=== PATIENT | female | born 1965 | race Caucasian/White ===

== ENCOUNTER → 2016-09-27 | Outpatient (REF) | payer BC ==
[~2016-09-27] MED LIST: COLA100C PO; DOCU10CA PO; KETO10TAB PO; KLON0.5T PO; MOTR200T44 PO; TYLE325T5 PO; ZOFR40IN IV
== END ==
LOC: M SFHCPLAZ 15:43
PROVIDERS: ATTEND Dermatology
DX: L98.9 Disorder of the skin and subcutaneous tissue, unspecified (principal)

== ENCOUNTER → 2017-01-09 | Outpatient (CLI) | payer BC ==
[~2017-01-09] MED LIST changes: -COLA100C PO; +COLA100C5 PO
--- NOTE | 2017-01-09 13:33 | REP ---
Clinical: Right upper quadrant abdominal pain. Technique: Single supine view of the abdomen and pelvis. Comparison: 01/22/2004. Findings: Bowel gas pattern is nonspecific although moderate fecal stasis and constipation cannot be excluded. No evidence for obstruction or perforation. No organomegaly. Skeletal structures normal for age. Impression: Cannot exclude fecal stasis. Nonspecific bowel gas pattern. The Signed by Jeremy Fink MD 01/09/2017 01:25 P
[2017-01-09 14:08] LABS: ALBUMIN/GLOBULIN RATIO 1.18 (1.00-1.93); ALKALINE PHOSPHATASE 62 U/L (45-117); ALT/SGPT 23 U/L (12-78); AMYLASE 51 U/L (25-115); ANION GAP 8 MEQ/L (8-16); AST/SGOT 20 U/L (15-37); BILIRUBIN,TOTAL 0.5 MG/DL (0.2-1.0); BLOOD UREA NITROGEN 11 MG/DL (7-18); CARBON DIOXIDE LEVEL 30 MEQ/L (21-32); CHLORIDE LEVEL 101 MEQ/L (98-107); CREATININE FOR GFR 0.66 MG/DL (0.55-1.02); GLOMERULAR FILTRATION RATE > 60.0 (>51); GLUCOSE, FASTING 78 MG/DL (70-105); POTASSIUM SERUM 3.8 MEQ/L (3.5-5.1); SODIUM LEVEL 139 MEQ/L (136-145); TOTAL PROTEIN 7.4 GM/DL (6.4-8.2)
== END ==
LOC: M LAB 12:32
PROVIDERS: ATTEND Nurse Practitioner Adult Health
DX: R10.11 Right upper quadrant pain (principal)

== ENCOUNTER → 2017-01-14 | Outpatient (CLI) | payer BC ==
--- NOTE | 2017-01-14 15:21 | REP ---
Right upper quadrant sonography: History: Right upper quadrant pain. Comparison study: Comparison sonography December 09, 2011. Findings: Scanning through the right upper quadrant of the abdomen demonstrates a normal sized, thin-walled gallbladder without evidence of stone or polyp. Common bile duct is normal measuring 0.4 cm in greatest diameter. No focal liver lesion is seen. Liver size is normal. No pancreatic abnormality is observed. Pancreatic tail is obscured by abdominal gas. No right renal abnormality is seen. There is no evidence of ascites. The right kidney measures 9.5 x 5.6 x 5.2 cm. Impression: Negative right upper quadrant sonography. Signed by Oscar Paiz MD 01/14/2017 03:12 P
== END ==
LOC: M RAD 07:31
PROVIDERS: ATTEND Nurse Practitioner Adult Health
DX: R10.11 Right upper quadrant pain (principal)

== ENCOUNTER → 2017-02-01 | Outpatient (CLI) | payer BC ==
[~2017-02-01] MED LIST changes: +GASTROGRAFIN SOLUTION 30ML (Q9963) As Ordered ONE; +ISOVUE-370 76% 100ML VIAL (Q9967) As Ordered ONE
--- NOTE | 2017-02-01 18:26 | REP ---
REASON: Abdominal discomfort. COMPARISON: 06/01/2013. CONTRAST UTILIZED: 100 mL [id number]. The lung bases are clear and unchanged. The precontrast enhanced portion of the examination shows hepatic and splenic densities to be within normal limits. There are no nephroliths or choleliths. The contrast enhanced portion of the exam shows no change in appearance of the hepatic or splenic densities. They are within normal limits. The gallbladder, spleen, pancreas, adrenal glands and kidneys are within normal limits and unchanged. The abdominal aorta and paraaortic regions are with normal limits and unchanged. No free fluid or free air is seen in the abdomen or pelvis. The intraabdominal and intrapelvic bowel loops and their mesenteries are again seen to be within normal limits. There is no intraabdominal mass. In the right hemipelvis there is an oval shaped 4.4 x 3.5 cm sized low density mass which is likely of ovarian origin, having slightly higher than Water Hounsfield's unit readings. The appearance of this is essentially unchanged from the prior exam. There is no intraabdominal or intrapelvic adenopathy. Bone window technique throughout the exam shows the osseous structures to be stable and intact. IMPRESSION: There is what is most likely a recurring right ovarian cyst. Pelvic ultrasonography using transvesical and transvaginal imaging is recommended for further evaluation. Signed by Josh Shea DO 02/01/2017 07:52 P
== END ==
LOC: M RAD 15:38
PROVIDERS: ATTEND Nurse Practitioner Adult Health
DX: R93.5 Abnormal findings on diagnostic imaging of other abdominal regions, including retroperitoneum (principal)
CPT/HCPCS: 74178; Q9963; Q9967

== ENCOUNTER → 2018-02-21 | Outpatient (CLI) | payer BC ==
[2018-02-21 09:55] LABS: ALBUMIN 3.5 GM/DL (3.2-5.2); ALBUMIN/GLOBULIN RATIO 1.03 (1.00-1.93); ALKALINE PHOSPHATASE 60 U/L (45-117); ALT/SGPT 26 U/L (12-78); ANION GAP 6 MEQ/L (8-16); AST/SGOT 18 U/L (7-37); BILIRUBIN,TOTAL 0.6 MG/DL (0.2-1.0); BLOOD UREA NITROGEN 8 MG/DL (7-18); C REACTIVE PROTEIN QUANTITATIV 0.33 MG/DL (0.00-0.30); CALCIUM LEVEL 8.8 MG/DL (8.5-10.1); CARBON DIOXIDE LEVEL 28 MEQ/L (21-32); CHLORIDE LEVEL 105 MEQ/L (98-107); CHOLESTEROL LEVEL 184 MG/DL (<200); CREATININE FOR GFR 0.63 MG/DL (0.55-1.30); GLOMERULAR FILTRATION RATE > 60.0 (>51); GLUCOSE, FASTING 84 MG/DL (70-100); HDL CHOLESTEROL 65 MG/DL (>40); NON-HDL-C 119 MG/DL; POTASSIUM SERUM 4.5 MEQ/L (3.5-5.1); SODIUM LEVEL 139 MEQ/L (136-145); TOTAL PROTEIN 6.9 GM/DL (6.4-8.2); TRIGLYCERIDES LEVEL 105 MG/DL (<150)
[2018-02-21 10:00] LABS: ERYTHROCYTE SEDIMENTATION RATE 11 mm/hr (0-30)
== END ==
LOC: M LAB 08:06
DX: Z01.818 Encounter for other preprocedural examination (principal)
CPT/HCPCS: 93005

== ENCOUNTER → 2018-02-21 | Outpatient (CLI) | payer BC ==
[2018-02-21 09:36] LABS: HEMATOCRIT 40.6 % (36.0-47.0); HEMOGLOBIN 14.1 g/dl (12.0-15.5); MEAN CORPUSCULAR HEMOGLOBIN 30.9 pg (27.0-33.0); MEAN CORPUSCULAR HGB CONC 34.7 g/dl (32.0-36.5); PLATELET COUNT, AUTOMATED 238 10^3/uL (150-450); RED BLOOD COUNT 4.56 10^6/uL (4.00-5.40); RED CELL DISTRIBUTION WIDTH 12.3 % (11.5-14.5); WHITE BLOOD COUNT 5.9 10^3/uL (4.0-10.0)
[2018-02-21 09:48] LABS: INR 0.96; PROTHROMBIN TIME 12.8 SECONDS (12.1-14.4)
[2018-02-21 09:49] LABS: PARTIAL THROMBOPLASTIN TIME 30.2 SECONDS (25.4-37.6)
[2018-02-21 10:05] LABS: ANION GAP 8 MEQ/L (8-16); BLOOD UREA NITROGEN 8 MG/DL (7-18); CALCIUM LEVEL 9.1 MG/DL (8.5-10.1); CARBON DIOXIDE LEVEL 30 MEQ/L (21-32); CHLORIDE LEVEL 103 MEQ/L (98-107); CREATININE FOR GFR 0.66 MG/DL (0.55-1.30); GLOMERULAR FILTRATION RATE > 60.0 (>51); GLUCOSE, FASTING 87 MG/DL (70-100); POTASSIUM SERUM 4.7 MEQ/L (3.5-5.1); SODIUM LEVEL 141 MEQ/L (136-145)
== END ==
LOC: M LAB 08:12
DX: Z01.812 Encounter for preprocedural laboratory examination (principal); I83.811 Varicose veins of right lower extremity with pain
CPT/HCPCS: 80048

== ENCOUNTER → 2019-04-22 | Outpatient (CLI) | payer BC ==
[~2019-04-22] MED LIST changes: -GASTROGRAFIN SOLUTION 30ML (Q9963) As Ordered ONE; -ISOVUE-370 76% 100ML VIAL (Q9967) As Ordered ONE
--- NOTE | 2019-04-22 07:57 | REP ---
Clinical: Epigastric pain and heartburn. Technique: Real time allen scale ultrasound examination using curved array transducer. Findings: Liver and pancreas are normal in contour, size, echogenicity without focal hepatic or pancreatic lesion identified. The gallbladder is normal and without gallstones, wall thickening, or pericholecystic fluid. No biliary ductal dilatation is appreciated and the common bile duct measures 2.7 mm diameter. Right kidney is normal in reniform shape and appearance without hydronephrosis measuring 10.6 x 5.8 x 5.7 cm. No ascites in the visualized right upper quadrant. Impression: Normal right upper quadrant abdominal ultrasound. Electronically Signed by Jeremy Fink MD 04/22/2019 07:49 A
== END ==
LOC: M RAD 07:20
PROVIDERS: ATTEND Internal Medicine
DX: R12 Heartburn (principal); R10.13 Epigastric pain

== ENCOUNTER 2020-07-06 09:04 | Emergency (ER) | payer OTHER, BC ==
[~2020-07-06] VITALS: Ht 167.6 cm; Wt 76.8 kg
[2020-07-06 09:04] VITALS: BP 130/72
[2020-07-06] MEDS ORDERED: HORMONE PELLET (09:18)
[2020-07-06] MEDS ORDERED: IBUPROFEN 800 MG TAB PO ONE (09:45)
--- NOTE | 2020-07-06 10:13 | REP ---
INDICATION: R hand pain COMPARISON: None. TECHNIQUE: AP, lateral, bilateral oblique views right hand. FINDINGS: The osseous structures and joint spaces are intact and normal. There is no evidence for acute fracture or dislocation. Surrounding soft tissues are unremarkable. No subcutaneous emphysema or radiodense foreign body. IMPRESSION: . No acute fracture or dislocation. <Electronically signed by Jeremy Fink > 07/06/20 [id number]
--- NOTE | 2020-07-06 10:13 | REP ---
INDICATION: R hand pain COMPARISON: None. TECHNIQUE: AP, lateral, bilateral oblique views right wrist. FINDINGS: The carpal bones, surrounding osseous structures, soft tissues, and joint spaces are normal. There is no evidence for acute fracture or dislocation. No subcutaneous emphysema or radiodense foreign body. IMPRESSION: Normal wrist series. No acute fracture or dislocation. <Electronically signed by Jeremy Fink > 07/06/20 [id number]
== END 2020-07-06 10:41 | disposition home or self-care (01) ==
LOC: M ED 09:04
DX: S63.91XA Sprain of unspecified part of right wrist and hand, initial encounter (principal); S60.211A Contusion of right wrist, initial encounter; S60.221A Contusion of right hand, initial encounter; W22.8XXA Striking against or struck by other objects, initial encounter; Y92.89 Other specified places as the place of occurrence of the external cause; Y99.0 Civilian activity done for income or pay; Z88.5 Allergy status to narcotic agent

== ENCOUNTER → 2020-09-07 | Outpatient (CLI) | payer BC ==
[~2020-09-07] MED LIST changes: +HORMONE PELLET
--- NOTE | 2020-09-07 08:04 | REP ---
INDICATION: RIGHT FLANK PAIN- LABS FIRST. COMPARISON: None. TECHNIQUE: AP, lateral, swimmer's views of the thoracic spine FINDINGS: Alignment and kyphosis maintained. Mild/moderate multilevel degenerative changes include endplate sclerosis, osteophytosis and minimal disc space narrowing. No acute fracture/compression injury or subluxation. IMPRESSION: Mild/moderate multilevel degenerative spondylosis. <Electronically signed by Jeremy Fink > 09/07/20 0800
[2020-09-07 08:06] LABS: HEMATOCRIT 44.1 % (36.0-47.0); HEMOGLOBIN 14.2 g/dl (12.0-15.5); MEAN CORPUSCULAR HEMOGLOBIN 29.5 pg (27.0-33.0); MEAN CORPUSCULAR HGB CONC 32.2 g/dl (32.0-36.5); MEAN CORPUSCULAR VOLUME 91.5 fl (80.0-96.0); PLATELET COUNT, AUTOMATED 230 10^3/uL (150-450); RED BLOOD COUNT 4.82 10^6/uL (4.00-5.40); WHITE BLOOD COUNT 7.7 10^3/uL (4.0-10.0)
--- NOTE | 2020-09-07 08:06 | REP ---
INDICATION: RIGHT FLANK PAIN- LABS FIRST COMPARISON: None. TECHNIQUE: AP, lateral, bilateral oblique, and coned-down views of the lumbar spine. FINDINGS: Very minimal levoconvex chronic scoliosis suggested. Lordosis maintained. Moderate multilevel degenerative changes include endplate sclerosis, marginal spurring/osteophyte formation, disc space narrowing and facet arthropathy. Findings most pronounced at L 3 4 and L4-5. There is no evidence for acute fracture/compression injury or subluxation. IMPRESSION: Moderate multilevel degenerative changes primarily involving L3-4 and L4-5. <Electronically signed by Jeremy Fink > 09/07/20 [id number]
[2020-09-07 08:52] LABS: ALBUMIN 3.9 GM/DL (3.2-5.2); ALT/SGPT 40 U/L (12-78); BILIRUBIN,TOTAL 0.5 MG/DL (0.2-1.0); BLOOD UREA NITROGEN 15 MG/DL (7-18); CARBON DIOXIDE LEVEL 31 MEQ/L (21-32); CHLORIDE LEVEL 104 MEQ/L (98-107); CHOLESTEROL LEVEL 189 MG/DL (<200); CHOLESTEROL RISK RATIO 3.315 (<5); CREATININE FOR GFR 0.73 MG/DL (0.55-1.30); FERRITIN 38 NG/ML (8-252); GLOMERULAR FILTRATION RATE > 60.0 (>51); GLUCOSE, FASTING 97 MG/DL (70-100); HDL CHOLESTEROL 57 MG/DL (>40); IRON (FE) 63 UG/DL (50-170); LDL CHOLESTEROL 120 MG/DL (<100); NON-HDL-C 132 MG/DL; PERCENT SATURATION 21.4 % (13.2-45.0); POTASSIUM SERUM 4.2 MEQ/L (3.5-5.1); SODIUM LEVEL 140 MEQ/L (136-145); TOTAL IRON BINDING CAPACITY 295 UG/DL (250-450); TOTAL PROTEIN 6.8 GM/DL (6.4-8.2); TRIGLYCERIDES LEVEL 60 MG/DL (<150)
== END ==
LOC: M LAB 07:15
PROVIDERS: ATTEND Nurse Practitioner Adult Health
DX: E55.9 Vitamin D deficiency, unspecified (principal); R53.83 Other fatigue; Z13.29 Encounter for screening for other suspected endocrine disorder; R10.9 Unspecified abdominal pain

== ENCOUNTER → 2020-10-26 | Outpatient (CLI) | payer BC ==
--- NOTE | 2020-10-26 16:39 | DEXAMM ---
INDICATION: M81.0 MENOPAUSAL OSTEOPOROSIS. COMPARISON: None. TECHNIQUE: Bone density was measured using dual-energy x-ray absorptionmetry (DEXA). FINDINGS: AP SPINE L1-L4 BMD 1.389 g/cm2 Young Adult T-Score 1.6 Age Matched Z-Score 2.3. LT FEMUR, TOTAL BMD 1.097 g/cm2 Young Adult T-Score 0.7 Age Matched Z-Score 1.3. LT NECK BMD 1.059 g/cm2 Young Adult T-Score 0.2 Age Matched Z-Score 1.1. RT FEMUR, TOTAL BMD 1.087 g/cm2 Young Adult T-Score 0.6 Age Matched Z-Score 1.2. RT NECK BMD 1.082 g/cm2 Young Adult T-Score 0.3 Age Matched Z-Score 1.3. IMPRESSION: There is normal bone density of the spine. There is normal bone density of the left hip. There is normal bone density of the right hip. FOLLOW-UP: Recommendation for the next bone density exam: 5 years. <Electronically signed by Eber Paiz > 10/26/20 [id number]
== END ==
LOC: M WHC 15:27
PROVIDERS: ATTEND Nurse Practitioner Adult Health
DX: M81.8 Other osteoporosis without current pathological fracture (principal)

== ENCOUNTER → 2020-11-25 | Outpatient (CLI) | payer BC ==
--- NOTE | 2020-11-25 08:23 | REP ---
INDICATION: N83.209 OVARIAN CYST COMPARISON: None. TECHNIQUE: Transabdominal pelvic ultrasound followed by transvaginal examination for better evaluation of the endometrium and adnexa with color Doppler evaluation of the ovaries. FINDINGS: Bladder is under distended and measures 3.3 x 1.9 x 3.2 cm. Patient is noted to be status post hysterectomy. No pelvic fluid or adnexal mass lesions. The bilateral ovaries are not visualized on either transabdominal or transvaginal technique due to significant interposed bowel gas within the pelvis. IMPRESSION: Limited examination. As above. Ovaries and adnexa incompletely evaluated. <Electronically signed by Jeremy Fink > 11/25/20 [id number]
== END ==
LOC: M WHC 06:35
PROVIDERS: ATTEND Specialist
DX: N83.209 Unspecified ovarian cyst, unspecified side (principal); Z90.79 Acquired absence of other genital organ(s)

== ENCOUNTER 2021-03-10 17:54 | Emergency (ER) | payer BC ==
[~2021-03-10] VITALS: Ht 167.6 cm; Wt 76.6 kg
[~2021-03-10 17:54] MED LIST changes: +INTR6.5S VA
[2021-03-10] MEDS ORDERED: ONDANSETRON 4MG/2ML VIAL IV ONE (18:20)
[2021-03-10] MEDS ORDERED: NS 1,000 ML IV ONE (18:20)
[2021-03-10] MEDS ORDERED: KETOROLAC 30 MG/ML 1ML VIAL IV ONE (18:20)
[2021-03-10 18:46] LABS: BASO # 0.1 10^3/uL (0.0-0.2); BASO % 0.7 % (0.0-1.0); EOS % 0.3 % (0.0-3.0); HEMATOCRIT 41.9 % (36.0-47.0); HEMOGLOBIN 14.2 g/dl (12.0-15.5); LYMPH # 1.6 10^3/uL (1.5-5.0); LYMPH % 11.9 % (24.0-44.0); MEAN CORPUSCULAR HEMOGLOBIN 30.1 pg (27.0-33.0); MEAN CORPUSCULAR HGB CONC 33.9 g/dl (32.0-36.5); MEAN CORPUSCULAR VOLUME 88.8 fl (80.0-96.0); MONO # 0.6 10^3/uL (0.0-0.8); MONO % 4.4 % (2.0-8.0); NEUTROPHILS # 10.8 10^3/uL (1.5-8.5); NEUTROPHILS % 82.2 % (36.0-66.0); PLATELET COUNT, AUTOMATED 289 10^3/uL (150-450); RED BLOOD COUNT 4.72 10^6/uL (4.00-5.40); WHITE BLOOD COUNT 13.1 10^3/uL (4.0-10.0)
[2021-03-10 19:25] LABS: ALBUMIN 3.8 GM/DL (3.2-5.2); ALT/SGPT 27 U/L (12-78); BILIRUBIN,DIRECT 0.2 MG/DL (0.0-0.2); BILIRUBIN,TOTAL 0.7 MG/DL (0.2-1.0); BLOOD UREA NITROGEN 10 MG/DL (7-18); CALCIUM LEVEL 8.6 MG/DL (8.5-10.1); CARBON DIOXIDE LEVEL 27 MEQ/L (21-32); CHLORIDE LEVEL 103 MEQ/L (98-107); CREATININE FOR GFR 0.62 MG/DL (0.55-1.30); GLOMERULAR FILTRATION RATE > 60.0 (>51); GLUCOSE, FASTING 117 MG/DL (70-100); POTASSIUM SERUM 3.9 MEQ/L (3.5-5.1); SODIUM LEVEL 137 MEQ/L (136-145); TOTAL PROTEIN 6.9 GM/DL (6.4-8.2)
--- NOTE | 2021-03-10 19:45 | REPVR ---
PROCEDURE INFORMATION: Exam: CT Abdomen And Pelvis Without Contrast Exam date and time: 03/10/2021 7:20 PM Age: 55 years old Clinical indication: Other: Right flank pain TECHNIQUE: Imaging protocol: Computed tomography of the abdomen and pelvis without contrast. Radiation optimization: All CT scans at this facility use at least one of these dose optimization techniques: automated exposure control; mA and/or kV adjustment per patient size (includes targeted exams where dose is matched to clinical indication); or iterative reconstruction. COMPARISON: CT ABD PELVIS W/O FOL BY WIT 02/01/2017 5:19 PM FINDINGS: Liver: Normal. No mass. Gallbladder and bile ducts: Normal. No calcified stones. No ductal dilation. Pancreas: Normal. No ductal dilation. Spleen: Normal. No splenomegaly. Adrenal glands: Normal. No mass. Kidneys and ureters: Punctate nonobstructive calculus lower pole right kidney. Kidneys otherwise unremarkable. Stomach and bowel: Unremarkable. No obstruction. No mucosal thickening. Appendix: The appendix is within normal limits. There is no appendiceal enlargement, periappendiceal inflammatory changes or abscess. Intraperitoneal space: Unremarkable. No free air. No significant fluid collection. Vasculature: The aortoiliac vessels demonstrate mild atherosclerotic calcification. Lymph nodes: Unremarkable. No enlarged lymph nodes. Urinary bladder: Unremarkable as visualized. Reproductive: There has been a hysterectomy. Bones/joints: Mild retrolisthesis of L4 on L5. Moderate central spinal stenosis L3-L4 and L4-L5. Soft tissues: Small umbilical hernia. IMPRESSION: 1. There has been a hysterectomy. 2. The appendix is within normal limits. There is no appendiceal enlargement, periappendiceal inflammatory changes or abscess. 3. Small nonobstructive calculus lower pole right kidney. No obstructive urinary tract calculi demonstrated. Electronically signed by: Abdullahi Ace On 03/10/2021 19:44:59 PM
[2021-03-10] MEDS ORDERED: diazePAM 10MG/2ML SYRINGE (J3360 PER 5MG) IV ONE (20:15)
[2021-03-10] MEDS ORDERED: KETO10TAB PO (20:49)
[2021-03-10] MEDS ORDERED: CYCL-707 PO (20:49)
[2021-03-10 21:24] VITALS: BP 128/74
== END 2021-03-10 21:24 | disposition home or self-care (01) ==
LOC: M ED 17:54
DX: N20.0 Calculus of kidney (principal); M62.830 Muscle spasm of back; M51.36 Other intervertebral disc degeneration, lumbar region; M48.061 Spinal stenosis, lumbar region without neurogenic claudication; K42.9 Umbilical hernia without obstruction or gangrene; I70.8 Atherosclerosis of other arteries; Z90.710 Acquired absence of both cervix and uterus
CPT/HCPCS: 74176; 80048; 80076; 81001; 85025; 96361; 96374; 96375; 99284; J1885; J2405; J3360

== ENCOUNTER → 2021-04-21 | Outpatient (REF) ==
[~2021-04-21] MED LIST changes: +CYCL-707 PO
== END ==
LOC: M EMP 12:45
PROVIDERS: ATTEND Family Medicine
DX: Z20.822 Contact with and (suspected) exposure to COVID-19 (principal)

== ENCOUNTER → 2021-07-12 | Outpatient (REF) | LOC: M EMP 13:14 | PROVIDERS: ATTEND Family Medicine | DX: Z11.52 Encounter for screening for COVID-19 (principal) ==

== ENCOUNTER → 2022-02-16 | Outpatient (CLI) | payer BC ==
[2022-02-16 10:50] LABS: ALBUMIN 3.6 GM/DL (3.2-5.2); ALT/SGPT 23 U/L (12-78); BILIRUBIN,TOTAL 0.7 MG/DL (0.2-1.0); BLOOD UREA NITROGEN 11 MG/DL (7-18); CALCIUM LEVEL 9.2 MG/DL (8.5-10.1); CARBON DIOXIDE LEVEL 28 MEQ/L (21-32); CHLORIDE LEVEL 102 MEQ/L (98-107); CHOLESTEROL LEVEL 210 MG/DL (<200); CHOLESTEROL RISK RATIO 3.088 (<5); CREATININE FOR GFR 0.68 MG/DL (0.55-1.30); GLOMERULAR FILTRATION RATE > 60.0 (>51); GLUCOSE, FASTING 79 MG/DL (70-100); HDL CHOLESTEROL 68 MG/DL (>40); LDL CHOLESTEROL 126 MG/DL (<100); NON-HDL-C 142 MG/DL; POTASSIUM SERUM 4.3 MEQ/L (3.5-5.1); SODIUM LEVEL 137 MEQ/L (136-145); TOTAL PROTEIN 7.1 GM/DL (6.4-8.2); TRIGLYCERIDES LEVEL 81 MG/DL (<150)
[2022-02-16 11:16] LABS: TOTAL 25(OH) VITAMIN D 48.8 NG/ML (30.0-100.0)
== END ==
LOC: M LAB 07:53
PROVIDERS: ATTEND Nurse Practitioner Adult Health
DX: Z00.00 Encounter for general adult medical examination without abnormal findings (principal); E55.9 Vitamin D deficiency, unspecified; Z13.29 Encounter for screening for other suspected endocrine disorder; Z13.220 Encounter for screening for lipoid disorders

== ENCOUNTER → 2022-03-17 | Outpatient (CLI) | payer BC ==
[2022-03-21 00:07] LABS: CYCLIC CITRULLINATED PEPTIDE 3 units (0-19); IgG P18 AB Absent (.); IgG P23 AB Absent (.); IgG P28 AB Present (.); IgG P30 AB Absent (.); IgG P39 AB Absent (.); IgG P41 AB Present (.); IgG P45 AB Absent (.); IgG P66 AB Absent (.); IgG P93 AB Absent (.); IgM P23 AB Absent (.); IgM P39 AB Absent (.); IgM P41 AB Absent (.); LYME IgG WB INTERPRETATION Negative (.); LYME IgM WB INTERPRETATION Negative (.)
== END ==
LOC: M LAB 11:29
PROVIDERS: ATTEND Nurse Practitioner Adult Health
DX: M25.50 Pain in unspecified joint (principal)

== ENCOUNTER → 2022-09-27 | Outpatient (CLI) | payer BC | LOC: M PLAIMG 12:35 | PROVIDERS: ATTEND Physician Assistant | DX: R22.0 Localized swelling, mass and lump, head (principal) ==

== ENCOUNTER → 2022-10-25 | Outpatient (CLI) | payer BC | LOC: M RAD 09:21 | PROVIDERS: ATTEND Physician Assistant | DX: R10.9 Unspecified abdominal pain (principal); Z87.442 Personal history of urinary calculi; R14.0 Abdominal distension (gaseous) ==

== ENCOUNTER → 2022-10-26 | Outpatient (CLI) | payer BC ==
[~2022-10-26] MED LIST changes: +GASTROGRAFIN SOLUTION 30ML As Ordered ONE; +ISOVUE-370 76% 100ML VIAL As Ordered ONE
== END ==
LOC: M RAD 08:04
PROVIDERS: ATTEND Physician Assistant
DX: R93.89 Abnormal findings on diagnostic imaging of other specified body structures (principal); R19.00 Intra-abdominal and pelvic swelling, mass and lump, unspecified site; N28.1 Cyst of kidney, acquired
CPT/HCPCS: 74177; Q9963; Q9967

== ENCOUNTER 2023-04-24 15:04 | Outpatient (RCR) | payer BC ==
[~2023-04-24 15:04] MED LIST changes: -GASTROGRAFIN SOLUTION 30ML As Ordered ONE; -ISOVUE-370 76% 100ML VIAL As Ordered ONE
== END 2023-05-07 ==
LOC: M PT 15:04
PROVIDERS: ATTEND Physician Assistant
DX: M75.41 Impingement syndrome of right shoulder (principal); M54.2 Cervicalgia

== ENCOUNTER 2023-06-05 07:00 | Outpatient (RCR) | payer BC ==
[~2023-06-05 07:00] MED LIST changes: -HOLTER MONITOR XX; -SLOWTAB2 PO
[2023-06-05] MEDS ORDERED: HOLTER MONITOR XX ×2 (15:35→15:36)
[2023-06-05] MEDS ORDERED: SLOWTAB2 PO (15:39)
== END 2023-06-06 ==
LOC: M PT 07:00
PROVIDERS: ATTEND Physician Assistant
DX: M75.41 Impingement syndrome of right shoulder (principal); M54.2 Cervicalgia

== ENCOUNTER 2023-06-05 13:59 | Emergency (ER) | payer BC ==
[~2023-06-05] VITALS: Ht 167.6 cm; Wt 80.1 kg
[2023-06-05 14:40] LABS: BASO # 0.1 10^3/uL (0.0-0.2); EOS # 0.1 10^3/uL (0.0-0.5); EOS % 1.1 % (0.0-3.0); HEMATOCRIT 43.7 % (36.0-47.0); HEMOGLOBIN 14.8 g/dl (12.0-15.5); LYMPH # 2.5 10^3/uL (1.5-5.0); LYMPH % 35.4 % (24.0-44.0); MEAN CORPUSCULAR HEMOGLOBIN 30.4 pg (27.0-33.0); MEAN CORPUSCULAR HGB CONC 33.9 g/dl (32.0-36.5); MEAN CORPUSCULAR VOLUME 89.7 fl (80.0-96.0); MONO # 0.4 10^3/uL (0.0-0.8); MONO % 5.7 % (2.0-8.0); NEUTROPHILS % 56.5 % (36.0-66.0); PLATELET COUNT, AUTOMATED 279 10^3/uL (150-450); RED BLOOD COUNT 4.87 10^6/uL (4.00-5.40)
[2023-06-05 15:10] LABS: ALBUMIN 3.8 G/DL (3.2-5.2); ALKALINE PHOSPHATASE 62 U/L (46-116); ALT/SGPT 24 U/L (7.0-40); AST/SGOT 21 U/L (<34); BILIRUBIN,DIRECT 0.1 MG/DL (<0.4); BILIRUBIN,TOTAL 0.5 MG/DL (0.3-1.2); BLOOD UREA NITROGEN 12 MG/DL (9-23); CALCIUM LEVEL 8.9 MG/DL (8.5-10.1); CARBON DIOXIDE LEVEL 30 MMOL/L (20-31); CHLORIDE LEVEL 102 MMOL/L (98-107); CPK CREATINE PHOSPHOKINASE 82 U/L (34-145); FREE T4 1.03 NG/DL (0.89-1.76); GLOMERULAR FILTRATION RATE > 60.0 (>51); GLUCOSE, FASTING 84 MG/DL (60-100); MAGNESIUM LEVEL 1.7 MG/DL (1.8-2.4); MB/CK RELATIVE INDEX 1.21 (< OR =4); PHOSPHORUS LEVEL 3.9 MG/DL (2.5-4.9); POTASSIUM SERUM 3.6 MMOL/L (3.5-5.1); SODIUM LEVEL 139 MMOL/L (136-145); THYROID STIMULATING HORMONE 2.061 uIU/ML (0.55-4.78); TOTAL PROTEIN 6.6 G/DL (5.7-8.2)
[2023-06-05] MEDS ORDERED: HOLTER MONITOR XX ×2 (15:35→15:36)
[2023-06-05] MEDS ORDERED: POTASSIUM CHLORIDE 10MEQ SR TABLET PO ONE (15:35)
[2023-06-05] MEDS ORDERED: MAG SULF 1GM/100ML (MAG RUN) 1 GM in IV 1 EA IV ONE (15:35)
[2023-06-05] MEDS ORDERED: SLOWTAB2 PO (15:39)
[2023-06-05 16:57] VITALS: BP 134/88; TEMP 97.1; O2SAT 98
== END 2023-06-05 17:00 | disposition home or self-care (01) ==
LOC: M ED 13:59
DX: R00.2 Palpitations (principal); E83.42 Hypomagnesemia; Z88.5 Allergy status to narcotic agent
CPT/HCPCS: 71046; 80048; 80076; 82550; 82553; 83735; 84100; 84439; 84443; 84484; 85025; 93005; 93041; 94760; 99285; J3475

== ENCOUNTER → 2023-06-05 | Outpatient (CLI) | payer BC ==
[~2023-06-05] MED LIST changes: +HOLTER MONITOR XX; +SLOWTAB2 PO
[2023-06-05 10:22] LABS: HEMATOCRIT 45.8 % (36.0-47.0); HEMOGLOBIN 15.5 g/dl (12.0-15.5); MEAN CORPUSCULAR HEMOGLOBIN 30.2 pg (27.0-33.0); MEAN CORPUSCULAR HGB CONC 33.8 g/dl (32.0-36.5); MEAN CORPUSCULAR VOLUME 89.1 fl (80.0-96.0); PLATELET COUNT, AUTOMATED 269 10^3/uL (150-450); RED BLOOD COUNT 5.14 10^6/uL (4.00-5.40); WHITE BLOOD COUNT 6.8 10^3/uL (4.0-10.0)
[2023-06-05 10:52] LABS: ALBUMIN 4.1 G/DL (3.2-5.2); ALKALINE PHOSPHATASE 62 U/L (46-116); ALT/SGPT 24 U/L (7.0-40); AST/SGOT 24 U/L (<34); BILIRUBIN,TOTAL 0.7 MG/DL (0.3-1.2); BLOOD UREA NITROGEN 12 MG/DL (9-23); CALCIUM LEVEL 10.1 MG/DL (8.5-10.1); CARBON DIOXIDE LEVEL 30 MMOL/L (20-31); CHLORIDE LEVEL 103 MMOL/L (98-107); CHOLESTEROL LEVEL 238 MG/DL (<200); CHOLESTEROL RISK RATIO 3.78 (<5); CREATININE FOR GFR 0.65 MG/DL (0.55-1.30); FERRITIN 66.5 NG/ML (7.3-270.7); GLOMERULAR FILTRATION RATE > 60.0 (>51); GLUCOSE, FASTING 85 MG/DL (60-100); HDL CHOLESTEROL 62.8 MG/DL (>40); LDL CHOLESTEROL 154.4 MG/DL (<100); NON-HDL-C 175.2 MG/DL; POTASSIUM SERUM 4.6 MMOL/L (3.5-5.1); SODIUM LEVEL 137 MMOL/L (136-145); TOTAL 25(OH) VITAMIN D 29.2 NG/ML (20.0-100.0); TRIGLYCERIDES LEVEL 104 MG/DL (<150); VITAMIN B12 LEVEL 1328 PG/ML (211-911)
[2023-06-05 12:35] LABS: THYROID STIMULATING HORMONE 1.599 uIU/ML (0.55-4.78)
== END ==
LOC: M LAB 09:58
PROVIDERS: ATTEND Nurse Practitioner Adult Health
DX: Z00.00 Encounter for general adult medical examination without abnormal findings (principal); Z13.220 Encounter for screening for lipoid disorders; R53.83 Other fatigue; Z13.29 Encounter for screening for other suspected endocrine disorder

== ENCOUNTER → 2023-06-05 | Outpatient (CLI) | payer BC | LOC: M EKG 17:05 | PROVIDERS: ATTEND Emergency Medicine | DX: R00.2 Palpitations (principal) ==

== ENCOUNTER 2023-06-19 08:21 | Outpatient (RCR) | payer BC ==
[~2023-06-19 08:21] MED LIST changes: +HOLTER MONITOR XX; +SLOWTAB2 PO
== END 2023-07-07 ==
LOC: M PT 08:21
PROVIDERS: ATTEND Physician Assistant
DX: M75.41 Impingement syndrome of right shoulder (principal); M54.2 Cervicalgia

== ENCOUNTER → 2023-06-26 | Outpatient (REF) | LOC: M EMP 12:24 | PROVIDERS: ATTEND Family Medicine | DX: Z11.52 Encounter for screening for COVID-19 (principal) ==

== ENCOUNTER → 2023-07-10 | Outpatient (CLI) | payer BC | LOC: M RAD 06:47 | PROVIDERS: ATTEND Physician Assistant | DX: M75.41 Impingement syndrome of right shoulder (principal); M47.892 Other spondylosis, cervical region; M50.122 Cervical disc disorder at C5-C6 level with radiculopathy; M50.121 Cervical disc disorder at C4-C5 level with radiculopathy ==

== ENCOUNTER → 2024-01-29 | Outpatient (CLI) | payer BC ==
[~2024-01-29] MED LIST changes: -KLON0.5T PO; +KLON0.5T8 PO
[2024-01-29 10:26] LABS: BASO % 0.6 % (0.0-1.0); EOS # 0.1 10^3/uL (0.0-0.5); EOS % 0.7 % (0.0-3.0); HEMATOCRIT 43.2 % (36.0-47.0); HEMOGLOBIN 14.2 g/dl (12.0-15.5); LYMPH # 1.9 10^3/uL (1.5-5.0); MEAN CORPUSCULAR HEMOGLOBIN 30.1 pg (27.0-33.0); MEAN CORPUSCULAR HGB CONC 32.9 g/dl (32.0-36.5); MEAN CORPUSCULAR VOLUME 91.7 fl (80.0-96.0); MONO # 0.3 10^3/uL (0.0-0.8); MONO % 3.6 % (2.0-8.0); NEUTROPHILS # 4.8 10^3/uL (1.5-8.5); NEUTROPHILS % 67.8 % (36.0-66.0); PLATELET COUNT, AUTOMATED 243 10^3/uL (150-450); RED BLOOD COUNT 4.71 10^6/uL (4.00-5.40)
[2024-01-29 10:54] LABS: ALBUMIN 3.8 G/DL (3.2-5.2); ALKALINE PHOSPHATASE 69 U/L (46-116); ALT/SGPT 28 U/L (7.0-40); AST/SGOT 24 U/L (<34); BILIRUBIN,TOTAL 0.6 MG/DL (0.3-1.2); BLOOD UREA NITROGEN 13 MG/DL (9-23); CALCIUM LEVEL 9.3 MG/DL (8.5-10.1); CARBON DIOXIDE LEVEL 30 MMOL/L (20-31); CHLORIDE LEVEL 103 MMOL/L (98-107); GLOMERULAR FILTRATION RATE > 60.0 (>51); GLUCOSE, FASTING 83 MG/DL (60-100); MAGNESIUM LEVEL 1.7 MG/DL (1.8-2.4); POTASSIUM SERUM 3.9 MMOL/L (3.5-5.1); SODIUM LEVEL 139 MMOL/L (136-145); TOTAL PROTEIN 6.6 G/DL (5.7-8.2)
[2024-01-29 10:56] LABS: FREE T4 0.98 NG/DL (0.89-1.76); THYROID STIMULATING HORMONE 1.487 uIU/ML (0.55-4.78)
== END ==
LOC: M LAB 08:57
PROVIDERS: ATTEND Physician Assistant Medical
DX: R00.2 Palpitations (principal)

== ENCOUNTER → 2024-03-03 | Outpatient (CLI) | payer BC | LOC: M SLEEP HO 03-02 10:21 | PROVIDERS: ATTEND Physician Assistant Medical | DX: R40.0 Somnolence (principal); G47.30 Sleep apnea, unspecified ==

== ENCOUNTER → 2024-05-29 | Outpatient (CLI) | payer BC ==
[2024-05-29 14:26] LABS: FOLLICLE STIMULATING HORMONE 23.6 mIU/ML; LUTEINIZING HORMONE 22.9 mIU/ML
[2024-05-29 14:28] LABS: ESTRADIOL 67.2 PG/ML
[2024-05-29 14:29] LABS: PROGESTERONE < 0.21 NG/ML
== END ==
LOC: M LAB 13:20
PROVIDERS: ATTEND Obstetrics & Gynecology
DX: N95.1 Menopausal and female climacteric states (principal); E34.9 Endocrine disorder, unspecified; R53.83 Other fatigue

== ENCOUNTER → 2024-09-02 | Outpatient (POV) | payer BC | LOC: M IRPOV 11:13 | PROVIDERS: ATTEND Radiology Diagnostic Radiology | DX: I83.813 Varicose veins of bilateral lower extremities with pain (principal); I78.1 Nevus, non-neoplastic; Z88.5 Allergy status to narcotic agent ==

== ENCOUNTER → 2024-09-28 | Outpatient (CLI) | payer BC | LOC: M RAD 12:26 | PROVIDERS: ATTEND Radiology Diagnostic Radiology | DX: I87.2 Venous insufficiency (chronic) (peripheral) (principal); I83.813 Varicose veins of bilateral lower extremities with pain ==

== ENCOUNTER → 2024-10-16 | Outpatient (CLI) | payer BC | LOC: M RAD 11:24 | PROVIDERS: ATTEND Physician Assistant | DX: J01.90 Acute sinusitis, unspecified (principal) ==

== ENCOUNTER → 2025-01-27 | Outpatient (REF) | LOC: M EMP 07:16 | PROVIDERS: ATTEND Family Medicine | DX: Z20.822 Contact with and (suspected) exposure to COVID-19 (principal) ==